=== PATIENT | female | born 1975 | race Caucasian/White ===

== ENCOUNTER 2017-01-19 21:57 | Emergency (ER) | payer MEDICAID ==
[~2017-01-19 21:57] MED LIST: GLUCOTROL5 MG PO; METFORMIN HCL850 MG PO; METFORMIN1000 M1 PO
== END 2017-01-19 22:30 | disposition left against medical advice (07) ==
LOC: ED 21:57
DX: Z53.21 Procedure and treatment not carried out due to patient leaving prior to being seen by health care provider (principal)

== ENCOUNTER 2017-03-08 18:49 | Emergency (ER) | payer MEDICAID ==
[~2017-03-08] VITALS: Ht 289.6 cm; Wt 70.9 kg
[2017-03-08 19:46] VITALS: BP 118/79
== END 2017-03-08 19:46 | disposition home or self-care (01) ==
LOC: ED 18:49
DX: B35.4 Tinea corporis (principal)

== ENCOUNTER 2017-03-13 12:27 | Emergency (ER) | payer MEDICAID ==
[~2017-03-13] VITALS: Ht 162.6 cm; Wt 71.3 kg
[2017-03-13 13:32] VITALS: BP 127/82
== END 2017-03-13 13:32 | disposition home or self-care (01) ==
LOC: ED 12:27
DX: S63.611A Unspecified sprain of left index finger, initial encounter (principal); E11.9 Type 2 diabetes mellitus without complications; Z79.84 Long term (current) use of oral hypoglycemic drugs; Z88.5 Allergy status to narcotic agent; Z91.012 Allergy to eggs; X58.XXXA Exposure to other specified factors, initial encounter; Y93.89 Activity, other specified; Y99.8 Other external cause status; Y92.89 Other specified places as the place of occurrence of the external cause
CPT/HCPCS: Q0092

== ENCOUNTER 2017-05-12 16:02 | Emergency (ER) | payer MEDICAID ==
[~2017-05-12] VITALS: Ht 167.6 cm; Wt 70.8 kg
[2017-05-12 17:49] VITALS: BP 137/87
== END 2017-05-12 17:49 | disposition home or self-care (01) ==
LOC: ED 16:02
DX: M54.5 Low back pain (principal); E11.9 Type 2 diabetes mellitus without complications; Z88.5 Allergy status to narcotic agent; Z79.84 Long term (current) use of oral hypoglycemic drugs; V49.49XA Driver injured in collision with other motor vehicles in traffic accident, initial encounter; Y93.89 Activity, other specified; Y99.8 Other external cause status; Y92.89 Other specified places as the place of occurrence of the external cause
CPT/HCPCS: 82962

== ENCOUNTER 2017-10-03 17:30 | Emergency (ER) | payer MEDICAID ==
[~2017-10-03] VITALS: Ht 160 cm; Wt 68.9 kg
[2017-10-03 17:47] VITALS: Ht 160 cm; Wt 68.9 kg
[2017-10-03 20:01] VITALS: BP 123/77
== END 2017-10-03 20:01 | disposition home or self-care (01) ==
LOC: ED 17:30
DX: S16.1XXA Strain of muscle, fascia and tendon at neck level, initial encounter (principal); E11.9 Type 2 diabetes mellitus without complications; Z88.5 Allergy status to narcotic agent; Z91.012 Allergy to eggs; V89.2XXA Person injured in unspecified motor-vehicle accident, traffic, initial encounter; Y93.89 Activity, other specified; Y92.89 Other specified places as the place of occurrence of the external cause; Y99.8 Other external cause status

== ENCOUNTER 2018-03-31 11:08 | Emergency (ER) | payer MEDICAID ==
[~2018-03-31] VITALS: Ht 160 cm; Wt 71.2 kg
[2018-03-31 11:15] VITALS: Ht 160 cm; Wt 71.2 kg
[2018-03-31 11:38] LABS: BASOPHIL % 0.8 % (0-2)
[2018-03-31 11:40] LABS: PLATELET COUNT 495 x10^3mcL (130-400); RED CELL DISTRIBUTION WIDTH 19.4 % (11.5-14.5)
[2018-03-31 11:42] LABS: CARBON DIOXIDE 21.6 mmol/L (21-32); CHLORIDE SERUM 104 mmol/L (98-107); CREATININE SERUM 0.7 mg/dL (0.6-1.0); GFR1 > 60 mL/min; GLUCOSE SERUM 291 mg/dL (74-106); POTASSIUM SERUM 3.5 mmol/L (3.5-5.1); SODIUM SERUM 137 mmol/L (136-145)
[2018-03-31 15:04] VITALS: BP 120/61
== END 2018-03-31 15:04 | disposition home or self-care (01) ==
LOC: ED 11:08
PROVIDERS: Emergency Medicine
DX: R07.89 Other chest pain (principal); E11.9 Type 2 diabetes mellitus without complications; Z88.5 Allergy status to narcotic agent; Z91.012 Allergy to eggs
CPT/HCPCS: 83880; Q0092

== ENCOUNTER 2018-10-08 20:00 | Emergency (ER) | payer MEDICAID ==
[~2018-10-08] VITALS: Ht 160 cm; Wt 68.9 kg
[2018-10-08 20:07] VITALS: Ht 160 cm; Wt 68.9 kg
[2018-10-08 20:43] LABS: CALCIUM 8.5 mg/dL (8.5-10.1); CARBON DIOXIDE 25.4 mmol/L (21-32); CHLORIDE SERUM 99 mmol/L (98-107); CREATININE SERUM 0.8 mg/dL (0.6-1.0); GFR1 > 60 mL/min; GLUCOSE SERUM 413 mg/dL (74-106); POTASSIUM SERUM 4.1 mmol/L (3.5-5.1); SODIUM SERUM 135 mmol/L (136-145)
[2018-10-08 22:24] VITALS: BP 115/88
== END 2018-10-08 22:24 | disposition home or self-care (01) ==
LOC: ED 20:00
PROVIDERS: Emergency Medicine
DX: E11.65 Type 2 diabetes mellitus with hyperglycemia (principal); Z98.890 Other specified postprocedural states; Z88.5 Allergy status to narcotic agent
CPT/HCPCS: 82962

== ENCOUNTER 2019-06-16 10:00 | Emergency (ER) | payer MEDICAID ==
[~2019-06-16] VITALS: Ht 160 cm; Wt 68.9 kg
[2019-06-16 10:09] VITALS: Ht 160 cm; Wt 68.9 kg
[2019-06-16 11:47] VITALS: BP 119/76
== END 2019-06-16 11:47 | disposition home or self-care (01) ==
LOC: ED 10:00
DX: J20.9 Acute bronchitis, unspecified (principal); E11.9 Type 2 diabetes mellitus without complications; Z88.5 Allergy status to narcotic agent
CPT/HCPCS: J1885

== ENCOUNTER 2019-07-13 15:52 | Emergency (ER) | payer MEDICAID ==
[2019-07-13 16:23] LABS: BASOPHIL % 0.8 % (0-2)
[2019-07-13 16:27] LABS: CALCIUM 8.8 mg/dL (8.5-10.1); CARBON DIOXIDE 29.1 mmol/L (21-32); CHLORIDE SERUM 100 mmol/L (98-107); CREATININE SERUM 0.8 mg/dL (0.6-1.0); GFR1 > 60 mL/min; GLUCOSE SERUM 312 mg/dL (74-106); PLATELET COUNT 386 x10^3mcL (130-400); SODIUM SERUM 138 mmol/L (136-145)
[2019-07-13 16:30] LABS: RED CELL DISTRIBUTION WIDTH 18.6 % (11.5-14.5)
[2019-07-13 16:32] LABS: ALBUMIN 3.7 g/dL (3.4-5.0); ALKALINE PHOSPHATASE 105 U/L (46-116); ALT/SGPT 18 U/L (14-59); AST/SGOT 9 U/L (15-37); BILIRUBIN TOTAL 0.3 mg/dL (0.20-1.00); TOTAL PROTEIN, SERUM 7.9 g/dL (6.4-8.2)
[2019-07-13 19:54] VITALS: BP 105/77
== END 2019-07-13 17:54 | disposition home or self-care (01) ==
LOC: ED 15:52
DX: N83.201 Unspecified ovarian cyst, right side (principal); N39.0 Urinary tract infection, site not specified; G89.18 Other acute postprocedural pain; E11.9 Type 2 diabetes mellitus without complications; Z98.890 Other specified postprocedural states; Z88.5 Allergy status to narcotic agent
CPT/HCPCS: J1885; J2405; J7030

== ENCOUNTER 2020-01-01 12:51 | Emergency (ER) | payer MEDICAID ==
[~2020-01-01] VITALS: Ht 160 cm; Wt 68.0 kg
[2020-01-01 13:02] VITALS: Ht 160 cm; Wt 68.0 kg
[2020-01-01 19:14] VITALS: BP 111/67
== END 2020-01-01 19:14 | disposition home or self-care (01) ==
LOC: ED 12:51
DX: B34.9 Viral infection, unspecified (principal); E11.9 Type 2 diabetes mellitus without complications; Z20.828 Contact with and (suspected) exposure to other viral communicable diseases; Z98.890 Other specified postprocedural states; Z88.5 Allergy status to narcotic agent
CPT/HCPCS: 87804; Q0092; Q0162; U0002